=== PATIENT | female | born 1935 | race Caucasian/White ===

== ENCOUNTER 2022-01-08 01:59 | Inpatient (IN) | payer MEDICARE ==
[~2022-01-08] VITALS: Ht 147.3 cm; Wt 62.6 kg
[2022-01-08] MEDS ORDERED: TEMAZEPAM 7.5 MG CAPSULE PO PRN (03:30)
[2022-01-08] MEDS ORDERED: MAGNESIUM HYDROXIDE 30 ML UDC PO PRN (03:30)
[2022-01-08] MEDS ORDERED: BLOOD SUGAR DIAGNOSTIC 1 EACH STRIP IN ONE (03:30)
[2022-01-08] MEDS ORDERED: MAG HYDROX/AL HYDROX/SIMETH 30 ML UDC PO PRN (03:30)
[2022-01-08] MEDS ORDERED: ARIP5TAB10 PO (03:37)
[2022-01-08] MEDS ORDERED: PANT40TA49 PO (03:38)
[2022-01-08] MEDS ORDERED: HYDR-3972 PO (03:39)
[2022-01-08] MEDS ORDERED: APIX2.5T PO (03:40)
[2022-01-08] MEDS ORDERED: DILT-4 PO (03:41)
[2022-01-08] MEDS ORDERED: LISI20TA30 PO (03:42)
[2022-01-08] MEDS ORDERED: LEVO75TA7 PO (03:42)
[2022-01-08] MEDS ORDERED: METO-358 PO (03:43)
[2022-01-08] MEDS ORDERED: QUET25TA PO (03:44)
[2022-01-08 04:39] VITALS: BP 132/82
[2022-01-08 08:00] VITALS: BP 136/74
[2022-01-08] MEDS: OLANZAPINE 5 MG TABLET PO SCH (11:53)
[2022-01-08] MEDS: HYDROCODONE/APAP 5/325MG TABLET PO PRN ×2 (13:44→21:23)
[2022-01-08 16:00] VITALS: BP 136/77
[2022-01-08] MEDS: APIXABAN 2.5 MG TABLET PO SCH (17:32)
[2022-01-08] MEDS: DIVALPROEX SODIUM 125 MG CAP.SPRINK PO SCH (17:33)
[2022-01-08 21:06] VITALS: BP 150/99
[2022-01-09 03:41] VITALS: BP 138/89
[2022-01-09 07:34] LABS: BASOPHILS % (AUTO) 0.6 % (0.0-2.0); EOSINOPHILS % (AUTO) 3.7 % (0.0-6.0); HEMATOCRIT 35 % (33-45); HEMOGLOBIN 11.6 g/dL (11.5-14.8); LYMPHOCYTES # (AUTO) 0.6 K/uL (0.8-4.8); LYMPHOCYTES % (AUTO) 11.8 % (20.0-44.0); MEAN CORPUSCULAR HGB CONC 33 g/dl (31.0-36.0); MEAN CORPUSCULAR VOLUME 93 fL (82-100); MONOCYTES # (AUTO) 0.4 K/uL (0.1-1.30); NEUTROPHILS # (AUTO) 4.2 K/uL (1.8-8.9); NEUTROPHILS % (AUTO) 75.9 % (43.0-81.0); PLATELET COUNT (AUTO) 333 K/uL (150-450); RED BLOOD CELL COUNT(AUTO) 3.76 MIL/uL (4.0-5.2); WHITE BLOOD COUNT (AUTO) 5.5 K/uL (4.3-11.0)
[2022-01-09 07:38] LABS: CALCIUM, SERUM 9.2 mg/dL (8.5-10.1); CREATININE 0.9 mg/dL (0.6-1.3); POTASSIUM 3.6 mmol/L (3.5-5.1)
[2022-01-09 08:00] VITALS: BP 135/98
[2022-01-09] MEDS ORDERED: Medication Not On Formulary EA (Metoprolol Succinate 1 TAB) PO SCH (09:00)
[2022-01-09] MEDS: OLANZAPINE 5 MG TABLET PO SCH (09:22)
[2022-01-09] MEDS: METOPROLOL SUCCINATE 50 MG TAB.SR.24H PO SCH (09:23)
[2022-01-09] MEDS: PANTOPRAZOLE 40 MG TABLET.DR PO SCH (09:23)
[2022-01-09] MEDS: LEVOTHYROXINE SODIUM 75 MCG TABLET PO SCH (09:24)
[2022-01-09] MEDS: LISINOPRIL (20MG) 20 MG TABLET PO SCH (09:24)
[2022-01-09] MEDS: DILTIAZEM HCL CD 240 MG PO SCH (09:25)
[2022-01-09] MEDS: DIVALPROEX SODIUM 125 MG CAP.SPRINK PO SCH ×2 (09:28→17:34)
[2022-01-09] MEDS: APIXABAN 2.5 MG TABLET PO SCH ×2 (09:28→17:34)
[2022-01-09] MEDS: ACETAMINOPHEN 325 MG TABLET PO PRN (09:28)
[2022-01-09 20:00] VITALS: BP 132/96
[2022-01-09 20:19] VITALS: BP 132/96
[2022-01-10] MEDS: ACETAMINOPHEN 325 MG TABLET PO PRN ×3 (00:44→16:13)
[2022-01-10] MEDS: LEVOTHYROXINE SODIUM 75 MCG TABLET PO SCH (06:55)
[2022-01-10 08:00] VITALS: BP 141/78
[2022-01-10] MEDS: OLANZAPINE 5 MG TABLET PO SCH (08:34)
[2022-01-10] MEDS: LISINOPRIL (20MG) 20 MG TABLET PO SCH (08:34)
[2022-01-10] MEDS: METOPROLOL SUCCINATE 50 MG TAB.SR.24H PO SCH (08:34)
[2022-01-10] MEDS: DILTIAZEM HCL CD 240 MG PO SCH (08:34)
[2022-01-10] MEDS: DIVALPROEX SODIUM 125 MG CAP.SPRINK PO SCH ×2 (08:34→16:15)
[2022-01-10] MEDS: APIXABAN 2.5 MG TABLET PO SCH ×2 (08:37→16:15)
[2022-01-10] MEDS: PANTOPRAZOLE 40 MG TABLET.DR PO SCH (08:38)
[2022-01-10 16:00] VITALS: BP 149/94
[2022-01-10 20:01] VITALS: BP 125/78
[2022-01-11] MEDS: LEVOTHYROXINE SODIUM 75 MCG TABLET PO SCH (06:35)
[2022-01-11] MEDS: ACETAMINOPHEN 325 MG TABLET PO PRN (06:42)
[2022-01-11 08:00] VITALS: BP 152/84
[2022-01-11] MEDS: METOPROLOL SUCCINATE 50 MG TAB.SR.24H PO SCH (08:23)
[2022-01-11] MEDS: DILTIAZEM HCL CD 240 MG PO SCH (08:23)
[2022-01-11] MEDS: OLANZAPINE 5 MG TABLET PO SCH ×2 (08:23→16:20)
[2022-01-11] MEDS: DIVALPROEX SODIUM 125 MG CAP.SPRINK PO SCH ×3 (08:24→16:20)
[2022-01-11] MEDS: PANTOPRAZOLE 40 MG TABLET.DR PO SCH (08:24)
[2022-01-11] MEDS: LISINOPRIL (20MG) 20 MG TABLET PO SCH (08:24)
[2022-01-11] MEDS: APIXABAN 2.5 MG TABLET PO SCH ×2 (08:26→16:22)
[2022-01-11] MEDS: HYDROCODONE/APAP 5/325MG TABLET PO PRN (11:57)
[2022-01-11 16:00] VITALS: BP 121/53
[2022-01-11 19:55] VITALS: BP 101/61
[2022-01-11 20:15] VITALS: BP 110/61
[2022-01-12] MEDS: HYDROCODONE/APAP 5/325MG TABLET PO PRN ×2 (04:20→12:40)
[2022-01-12 08:00] VITALS: BP 136/81
[2022-01-12] MEDS: DIVALPROEX SODIUM 125 MG CAP.SPRINK PO SCH ×3 (08:14→16:28)
[2022-01-12] MEDS: DILTIAZEM HCL CD 240 MG PO SCH (08:14)
[2022-01-12] MEDS: LEVOTHYROXINE SODIUM 75 MCG TABLET PO SCH (08:14)
[2022-01-12] MEDS: LISINOPRIL (20MG) 20 MG TABLET PO SCH (08:15)
[2022-01-12] MEDS: OLANZAPINE 5 MG TABLET PO SCH ×2 (08:15→16:28)
[2022-01-12] MEDS: PANTOPRAZOLE 40 MG TABLET.DR PO SCH (08:15)
[2022-01-12] MEDS: METOPROLOL SUCCINATE 50 MG TAB.SR.24H PO SCH (08:16)
[2022-01-12] MEDS: APIXABAN 2.5 MG TABLET PO SCH ×2 (08:20→16:30)
[2022-01-12] MEDS ORDERED: OLANZAPINE 5 MG TABLET PO SCH (09:00)
[2022-01-12 16:00] VITALS: BP 132/75
[2022-01-12 20:00] VITALS: BP 140/79
[2022-01-13 08:00] VITALS: BP 153/89
[2022-01-13] MEDS: LEVOTHYROXINE SODIUM 75 MCG TABLET PO SCH (08:25)
[2022-01-13] MEDS: METOPROLOL SUCCINATE 50 MG TAB.SR.24H PO SCH (08:51)
[2022-01-13] MEDS: PANTOPRAZOLE 40 MG TABLET.DR PO SCH (08:52)
[2022-01-13] MEDS: LISINOPRIL (20MG) 20 MG TABLET PO SCH (08:52)
[2022-01-13] MEDS: DILTIAZEM HCL CD 240 MG PO SCH (08:52)
[2022-01-13] MEDS: OLANZAPINE 5 MG TABLET PO SCH ×2 (08:52→17:05)
[2022-01-13] MEDS: DIVALPROEX SODIUM 125 MG CAP.SPRINK PO SCH ×3 (08:52→17:05)
[2022-01-13] MEDS: APIXABAN 2.5 MG TABLET PO SCH ×2 (08:53→17:09)
[2022-01-13] MEDS: LORAZEPAM 0.5 MG TABLET PO PRN (13:49)
[2022-01-13 16:00] VITALS: BP 130/84
[2022-01-13 20:00] VITALS: BP 113/73
[2022-01-14 08:00] VITALS: BP 115/72
[2022-01-14] MEDS ORDERED: DIVALPROEX SODIUM 125 MG CAP.SPRINK PO SCH (08:00)
[2022-01-14] MEDS: LEVOTHYROXINE SODIUM 75 MCG TABLET PO SCH (08:12)
[2022-01-14] MEDS: PANTOPRAZOLE 40 MG TABLET.DR PO SCH (09:21)
[2022-01-14] MEDS: OLANZAPINE 5 MG TABLET PO SCH (09:21)
[2022-01-14] MEDS: METOPROLOL SUCCINATE 50 MG TAB.SR.24H PO SCH (09:21)
[2022-01-14] MEDS: LISINOPRIL (20MG) 20 MG TABLET PO SCH (09:22)
[2022-01-14] MEDS: DILTIAZEM HCL CD 240 MG PO SCH (09:22)
[2022-01-14] MEDS: APIXABAN 2.5 MG TABLET PO SCH ×2 (09:23→16:31)
[2022-01-14] MEDS: DIVALPROEX SODIUM 125 MG CAP.SPRINK PO SCH ×2 (09:28→16:30)
[2022-01-14] MEDS: HYDROCODONE/APAP 5/325MG TABLET PO PRN (10:43)
[2022-01-14 16:00] VITALS: BP 155/88
[2022-01-14] MEDS: LORAZEPAM 0.5 MG TABLET PO PRN (16:30)
[2022-01-14 20:00] VITALS: BP 145/73
[2022-01-14] MEDS ORDERED: OLANZAPINE 2.5 MG TABLET PO SCH (22:00)
[2022-01-15] MEDS: LEVOTHYROXINE SODIUM 75 MCG TABLET PO SCH (07:57)
[2022-01-15 08:00] VITALS: BP 137/72
[2022-01-15] MEDS: DIVALPROEX SODIUM 125 MG CAP.SPRINK PO SCH (08:03)
[2022-01-15] MEDS: PANTOPRAZOLE 40 MG TABLET.DR PO SCH (08:04)
[2022-01-15] MEDS: DILTIAZEM HCL CD 240 MG PO SCH (08:06)
[2022-01-15 08:07] VITALS: BP 137/72
[2022-01-15] MEDS: METOPROLOL SUCCINATE 50 MG TAB.SR.24H PO SCH (08:07)
[2022-01-15] MEDS: LISINOPRIL (20MG) 20 MG TABLET PO SCH (08:07)
[2022-01-15] MEDS: APIXABAN 2.5 MG TABLET PO SCH (08:37)
[2022-01-15] MEDS ORDERED: OLANZAPINE 5 MG TABLET PO SCH (09:00)
== END 2022-01-15 12:20 | disposition home or self-care (01) | DRG 885 ==
LOC: GPS 01:59
PROVIDERS: ADMIT Psychiatry & Neurology Psychiatry; ATTEND Nurse Practitioner Acute Care
DX: F20.0 Paranoid schizophrenia (principal); I10 Essential (primary) hypertension; E03.9 Hypothyroidism, unspecified; K21.9 Gastro-esophageal reflux disease without esophagitis; M62.81 Muscle weakness (generalized); Z96.651 Presence of right artificial knee joint; R27.8 Other lack of coordination; M17.11 Unilateral primary osteoarthritis, right knee; F41.9 Anxiety disorder, unspecified; F32.A Depression, unspecified
CPT/HCPCS: 36415; 73560-TC; 80048-TC; 80061-TC; 80164-TC; 85025-TC; 97116-TC; 97530-TC